=== PATIENT | male | born 1960 | race African-American/Black ===

== ENCOUNTER 2024-05-15 11:48 | Emergency (ER) | payer BC ==
[~2024-05-15] VITALS: Ht 177.8 cm; Wt 128.0 kg
[2024-05-15 11:51] VITALS: BP 108/82; PULSE 120; TEMP 36.9; O2SAT 96
[2024-05-15 12:38] VITALS: RESP 18
[2024-05-15] MEDS ORDERED: ONDANSETRON HCL 4MG/2ML INJ IV ONE (12:45)
[2024-05-15] MEDS ORDERED: FUROSEMIDE 40MG/4ML VIAL IV ONE (12:45)
[2024-05-15] MEDS ORDERED: NITROGLYCERIN OINT 1GM/INCH UDPKT TD ONE (12:45)
[2024-05-15 13:11] LABS: BASOPHILS % 0.4 % (0.0-2.0); EOSINOPHILS % 0.5 % (0.0-5.0); HEMATOCRIT. 42.4 % (42.0-52.0); HEMOGLOBIN. 13.5 g/dL (14.0-18.0); LYMPHOCYTES % 17.2 % (20.0-50.0); MEAN CORPUSCULAR HEMOGLOBIN 29.2 pg (28.0-32.0); MEAN CORPUSCULAR HGB CONC 31.8 g/dL (31.0-37.0); MEAN CORPUSCULAR VOLUME 92.1 fL (80.0-94.0); MONOCYTES % 8.3 % (2.0-8.0); NEUTROPHILS % 73.6 % (40.0-76.0); PLATELET 272 x1000/uL (130-400); RED CELL DISTRIBUTION WIDTH 15.2 % (11.6-14.6); WHITE BLOOD COUNT 17.1 x1000/uL (4.5-11.0)
[2024-05-15 13:19] LABS: CHLORIDE 104 mEq/L (98-107); SODIUM 139 mEq/L (136-145)
[2024-05-15 13:20] LABS: CALCIUM 9.4 mg/dL (8.7-10.4); CARBON DIOXIDE 17 mEq/L (21-32)
[2024-05-15 13:25] LABS: CREATININE 1.6 mg/dL (0.6-1.3); GLUCOSE 367 mg/dL (70-105); UREA NITROGEN BLOOD 20 mg/dL (9-23)
[2024-05-15 13:26] LABS: TROPONIN I HIGH SENSITIVITY 20 ng/L (3.0-53)
== END 2024-05-15 13:05 ==
LOC: ER 11:48 → CANBEDREQ 13:09
DX: I46.9 Cardiac arrest, cause unspecified (principal); I11.0 Hypertensive heart disease with heart failure; F19.90 Other psychoactive substance use, unspecified, uncomplicated; I50.9 Heart failure, unspecified; E11.9 Type 2 diabetes mellitus without complications; R06.09 Other forms of dyspnea
CPT/HCPCS: 36415; 80048; 82962; 83880; 84484; 85025; 92950; 92960; 94070; 94660; 99291